=== PATIENT | male | born 1995 | race Caucasian/White ===

== ENCOUNTER → 2025-01-14 | Outpatient (CLI) | payer SELFPAY ==
--- NOTE | 2025-01-14 10:28 | RAD_ITS ---
PROCEDURE: CHEST PA AND LATERAL 01/14/2025 REASON FOR EXAM: SOB TECHNIQUE: CHEST PA AND LATERAL COMPARISON: None. RAD/Chest PA and Lateral IMPRESSION: Lungs appear clear throughout. No pleural effusion or pneumothorax is noted. The cardiomediastinal silhouette is within the normal range. Minimal thoracic spine degenerative changes are noted. No evidence of acute disease. Reading Location: [place] [id number]
== END | disposition home or self-care (01) ==
LOC: RAD 10:23
DX: R06.02 Shortness of breath (principal)
CPT/HCPCS: 71046